=== PATIENT | female | born 1995 | race Caucasian/White ===

== ENCOUNTER 2020-12-17 19:15 | Emergency (ER) | payer MEDICAID ==
[~2020-12-17] VITALS: Ht 157.5 cm; Wt 63.6 kg
[~2020-12-17 19:15] MED LIST: IBUP-1984 PO
[2020-12-17 19:18] VITALS: BP 132/53
[2020-12-17 20:09] LABS: URINE HCG NEGATIVE (NEG)
[2020-12-17 20:18] LABS: CLARITY,URINE SLIGHTLY CLOUDY (Clear); COLOR,URINE YELLOW (Yellow); GLUCOSE, URINE NEGATIVE (Neg); KETONES,URINE NEGATIVE (Neg); LEUKOCYTE ESTERASE ,URINE MODERATE (Neg); NITRITES, URINE NEGATIVE (Neg); OCCULT BLOOD,URINE LARGE (Neg); PROTEIN,URINE TRACE mg/dl (Neg); UROBILINOGEN,URINE 0.2 E.U/dL (0.2-1.0)
[2020-12-17 20:27] LABS: UA COLLECTION TYPE CLN CATCH MIDSTREAM; WBC,URINE 20-30 /HPF (0-4)
[2020-12-17 20:28] LABS: BACTERIA,URINE FEW /HPF (Neg); RBC,URINE 50-100 /HPF (0-2); SQUAMOUS EPITHELIAL CELL,UR FEW /LPF (FEW)
[2020-12-17] MEDS ORDERED: SULF1TAB49 PO (20:37)
== END 2020-12-17 20:55 | disposition home or self-care (01) ==
LOC: ER 19:15
DX: N39.0 Urinary tract infection, site not specified (principal); Z79.899 Other long term (current) drug therapy
CPT/HCPCS: 81001; 81025; 87088; 99283

== ENCOUNTER 2023-02-19 12:35 | Emergency (ER) | payer MEDICAID ==
[~2023-02-19] VITALS: Ht 157.5 cm; Wt 70.6 kg
[2023-02-19 12:51] VITALS: BP 122/59
[2023-02-19] MEDS ORDERED: cyclobenzaprine 10mg tablet PO ONE (14:30)
[2023-02-19] MEDS ORDERED: ketorolac tromethamine 15mg/ml inj. IM ONE (14:30)
[2023-02-19] MEDS ORDERED: IBUP-1984 PO (14:40)
[2023-02-19] MEDS ORDERED: CYCL-1 PO (14:40)
== END 2023-02-19 15:02 | disposition home or self-care (01) ==
LOC: ER 12:36
DX: S29.012A Strain of muscle and tendon of back wall of thorax, initial encounter (principal); X58.XXXA Exposure to other specified factors, initial encounter; Y93.89 Activity, other specified; Y92.89 Other specified places as the place of occurrence of the external cause; Y99.8 Other external cause status
CPT/HCPCS: 96372; 99283; J1885

== ENCOUNTER 2023-07-12 13:55 | Emergency (ER) | payer MEDICAID ==
[~2023-07-12] VITALS: Ht 157.5 cm; Wt 71.4 kg
[~2023-07-12 13:55] MED LIST changes: +CYCL-1 PO
[2023-07-12 14:32] VITALS: TEMP 98.6
[2023-07-12] MEDS ORDERED: dexamethasone sod phosphate 10mg/ml inj IM STA (19:25)
[2023-07-12] MEDS ORDERED: hydrOXYzine 25 MG tablet PO PRN (19:25)
[2023-07-12] MEDS ORDERED: methylPREDNISolone acetate 80mg/ml inj**IM only IM ONE (19:25)
[2023-07-12] MEDS ORDERED: HYDR-3686 PO (19:28)
--- NOTE | 2023-07-12 19:30 | NUR ---
MANAGER OF BUSINESS OPERATIONS assessment reviewed and agreed upon by this RN
[2023-07-12 19:58] VITALS: BP 128/79; PULSE 88; RESP 18; O2SAT 98
== END 2023-07-12 19:58 | disposition home or self-care (01) ==
LOC: ER 13:55
DX: L23.7 Allergic contact dermatitis due to plants, except food (principal); Z79.899 Other long term (current) drug therapy; Z79.1 Long term (current) use of non-steroidal anti-inflammatories (NSAID)
CPT/HCPCS: 96372; 99284; J1040; J1100

== ENCOUNTER 2024-06-21 06:05 | Emergency (ER) | payer BC, MEDICAID ==
[~2024-06-21] VITALS: Ht 157.5 cm; Wt 77.0 kg
[2024-06-21 06:35] VITALS: BP 126/57; PULSE 73; TEMP 98.6; O2SAT 97
[2024-06-21 07:44] VITALS: RESP 16
[2024-06-21] MEDS: ketorolac trometh 15mg/ml vial 15 MG/ML ML IM ONE (07:44)
[2024-06-21] MEDS ORDERED: IBUP-1985 PO (09:04)
[2024-06-21] MEDS ORDERED: CYCL-1 PO (09:04)
== END 2024-06-21 09:10 | disposition home or self-care (01) ==
LOC: ER 06:05
DX: S16.1XXA Strain of muscle, fascia and tendon at neck level, initial encounter (principal); M54.2 Cervicalgia; F17.200 Nicotine dependence, unspecified, uncomplicated; Z79.899 Other long term (current) drug therapy; Z79.1 Long term (current) use of non-steroidal anti-inflammatories (NSAID); X58.XXXA Exposure to other specified factors, initial encounter; Y93.89 Activity, other specified; Y92.89 Other specified places as the place of occurrence of the external cause; Y99.8 Other external cause status
CPT/HCPCS: 96372; 99283; J1885